=== PATIENT | female | born 1960 | race Caucasian/White ===

== ENCOUNTER → 2022-06-13 07:40 | Outpatient (CLI) | payer BC, SELFPAY ==
--- NOTE | ~2022-06-13 | US_ITS ---
EXAMINATION: US right upper quadrant DATE: 06/13/2022 08:25 INDICATION: Abnormal liver function tests. TECHNIQUE: Multiple grayscale and Doppler ultrasound images of the abdomen were obtained. COMPARISON: None FINDINGS: The visualized portions of the head and body of pancreas are normal. There is an 11 mm cyst in the liver. No liver surface nodularity. There is normal flow in main portal vein. The gallbladder is absent. The common duct is normal and measures 5 mm. IMPRESSION: 1. No etiology for abnormal liver function tests. Reviewed, dictated and finalized at location D.
== END ==
PROVIDERS: PCP Internal Medicine; Visit Provider Internal Medicine
DX: R94.5 Abnormal results of liver function studies (principal)
CPT/HCPCS: 76705